=== PATIENT | male | born 1965 | race Hispanic/Latino ===

== ENCOUNTER 2021-04-08 21:30 | Inpatient (IN) | payer OTHER ==
--- OUTSIDE RECORDS SUMMARY | 2021-04-08 21:32 | XMS REPORT | Continuity of Care Document ---
:1965 Author Organization [facility] t Address [address] [place] [address] Care Team Providers Name Role Phone 1, Sleep Lab Bed Attending Clinician Unavailable Only, Test Attending Clinician Unavailable Doctor Unassigned, Name Attending Clinician Unavailable Amy MORE, H Attending Clinician Amado OMRE Attending Clinician Problems This patient has no known problems. Allergies, Adverse Reactions, Alerts This patient has no known allergies or adverse reactions. Medications This patient has no known medications. Procedures This patient has no known procedures. Encounters Start End Encounter Admission Attending Care Care Encounter Source Date/Time Date/Time Type Type Clinicians Facility Department ID 2020-12-31 2020-12-31 Range Feeder 1, [facility] [id number] 12:23:36 14:53:36 Visit Sleep Lab [place] [id number] [facility] [id number] [place] [address] [id number] 2020-12-29 2020-12-29 Laboratory Only, [facility] [id number] 12:23:02 12:38:02 Only Test [place] [id number] [place] [id number] [place] [address] [id number] 2020-12-29 2020-12-29 Orders Doctor SOUSA [id number] 00:00:00 00:00:00 Only Unassigned, [facility] [id number] [place] [facility] [id number] 2020-12-29 2020-12-29 Telephone LARS Reyes [id number] 00:00:00 00:00:00 [place] ALEJO [id number] [facility] [id number] 2020-12-15 2020-12-15 Office SALOMÓN Fischer [id number] 09:36:53 10:20:11 Visit Daniela White [id number] [place] [id number] [facility] [id number] [facility] [address] Results This patient has no known results.
[2021-04-08 23:12] LABS: Absolute Lymphocytes (CBC) 0.6 K/uL (0.7-4.9); Basophils % 0.2 % (0-1.3); Hematocrit 42.2 % (39.6-49.0); Lymphocytes % 5.1 % (15.3-44.8); MPV 9.3 fL (7.6-11.3); RBC Red Blood Cell Count 4.42 M/uL (4.33-5.43)
[2021-04-08 23:29] LABS: ALT/SGPT 40 U/L (12-78); AST/SGOT 24 U/L (15-37); Alkaline Phosphatase 146 U/L (45-117); BUN Blood Urea Nitrogen 16 mg/dL (7-18); Bicarbonate 26 mmol/L (21-32); Bilirubin Direct 0.2 mg/dL (0-0.2); Bilirubin Total 0.8 mg/dL (0.2-1.0); Glucose Level 195 mg/dL (74-106); Lipase 154 U/L (73-393); Protein, Total 8.3 g/dL (6.4-8.2); Sodium Level 142 mmol/L (136-145)
[2021-04-09 01:43] LABS: Blood Morphology Comment NOT SEEN (NOT SEEN); Platelet Estimate ADEQ
--- NOTE | 2021-04-09 02:14 | EDPHYS ---
[facility] Name: Jarrett Sullivan Age: 56 yrs Sex: Male : 1965 Arrival Date: 04/08/2021 Time: 21:51 Bed 11 Private MD: ED Physician Maria L Hector HPI: 04/09 02:20 This 56 yrs old Male presents to ER via EMS with complaints of Abdominal Pain. kb 02:20 The patient presents with abdominal pain in the left upper quadrant, in the left lower kb quadrant. Onset: The symptoms/episode began/occurred today. The symptoms do not radiate. Associated signs and symptoms: none. The symptoms are described as constant. Modifying factors: The symptoms are alleviated by nothing, the symptoms are aggravated by nothing. Severity of pain: At its worst the pain was moderate in the emergency department the pain is unchanged. The patient has not experienced similar symptoms in the past. The patient has not recently seen a physician. Pt reports he felt like someone punched him in the left side of abd when he tried getting out of bed today. Denies any other symptoms. Historical: - Allergies: 04/08 22:28 No Known Allergies; iw - PMHx: 22:28 colon cancer; iw - PSHx: 22:28 Colostomy; iw - Immunization history:: Client reports receiving the 2nd dose of the Covid vaccine. - Social history:: Smoking status: Patient denies any tobacco usage or history of. ROS: 04/09 02:19 Constitutional: Negative for fever, chills, and weight loss. kb Abdomen/GI: Positive for abdominal pain, Negative for nausea, vomiting, and diarrhea. All other systems are negative. Exam: 02:19 Constitutional: This is a well developed, well nourished patient who is awake, alert, kb and in no acute distress. Head/Face: Normocephalic, atraumatic. ENT: Moist Mucous membranes Cardiovascular: Regular rate and rhythm with a normal S1 and S2. No gallops, murmurs, or rubs. No pulse deficits. Respiratory: Respirations even and unlabored. No increased work of breathing, no retractions or nasal flaring. Skin: Warm, dry with normal turgor. Normal color. MS/ Extremity: Pulses equal, no cyanosis. Neurovascular intact. Full, normal range of motion. Neuro: Awake and alert, GCS 15, oriented to person, place, time, and situation. Moves all extremities. Normal gait. Psych: Awake, alert, with orientation to person, place and time. Behavior, mood, and affect are within normal limits. 02:19 Abdomen/GI: Inspection: distension, that is moderate, Bowel sounds: diminished, Palpation: mild abdominal tenderness, in the left upper quadrant and left lower quadrant, colostomy to LLQ. Vital Signs: 04/08 22:29 BP 119 / 51; Pulse 79; Resp 16; Temp 97.9; Pulse Ox 100% on R/A; Weight 104.33 kg; iw Height 5 ft. 5 in. (165.10 cm); Pain 7/10; 22:29 Body Mass Index 38.27 (104.33 kg, 165.10 cm) iw MDM: 04/09 02:06 Patient medically screened. kb 02:12 Data reviewed: vital signs, nurses notes. Data interpreted: Pulse oximetry: on room air kb is 100 %. Interpretation: normal. Counseling: I had a detailed discussion with the patient and/or guardian regarding: the historical points, exam findings, and any diagnostic results supporting the discharge/admit diagnosis, lab results, radiology results, the need for further work-up and treatment in the hospital. Physician consultation: Tutu Logan MD was contacted at 02:12, regarding consult, patient's condition, and will see patient in inpatient room. 02:13 Physician consultation: Ezequiel DUTTON was contacted at 02:13, and will see patient kb in ED. 04/08 23:00 Order name: Basic Metabolic Panel; Complete Time: 00:44 EDPA 04/08 23:00 Order name: Liver (Hepatic) Function; Complete Time: 00:44 EDMS 04/08 23:00 Order name: Lipase; Complete Time: 00:44 EDPA 04/08 23:00 Order name: CBC with Automated Diff; Complete Time: 01:56 EDMS 04/08 23:17 Order name: Manual Differential; Complete Time: 01:56 EDPA 04/09 01:10 Order name: COVID-19 : Document "Date of Symptom Onset" if Symptomatic. kb 04/09 05:16 Order name: SARS-COV-2 RT PCR EDPA 04/09 10:04 Order name: Glucose, Ancillary Testing EDMS 04/09 12:24 Order name: Glucose, Ancillary Testing EDMS 04/09 16:36 Order name: Glucose, Ancillary Testing EDMS 04/08 23:28 Order name: CT Abd/Pelvis - IV Contrast Only sp3 04/09 08:06 Order name: RAD EDMS 04/09 23:03 Order name: Glucose, Ancillary Testing EDMS 04/10 04:07 Order name: CBC with Automated Diff EDMS 04/10 04:52 Order name: Comprehensive Metabolic Panel EDMS 04/10 04:52 Order name: Lipid Profile EDMS 04/10 04:52 Order name: T4 Free EDMS 04/10 04:52 Order name: Magnesium EDMS 04/10 04:52 Order name: Thyroid Stimulating Hormone EDMS 04/10 06:31 Order name: Glucose, Ancillary Testing EDMS 04/10 07:16 Order name: Urinalysis EDMS 04/10 08:07 Order name: Glucose, Ancillary Testing EDMS 04/10 08:41 Order name: RAD EDMS 04/08 22:31 Order name: IV Saline Lock; Complete Time: 04:01 iw 04/08 22:31 Order name: Labs collected and sent; Complete Time: 02:16 iw Administered Medications: 02:42 Drug: Zosyn (piperacillin-tazobactam) 3.375 grams Route: IVPB; Infused Over: 60 mins; bs2 Site: left antecubital; 04:01 Follow up: IV Status: Completed infusion bs2 02:42 Drug: NS 0.9% 1000 ml Route: IV; Rate: 100 ml/hr; Site: left antecubital; bs2 04:01 Follow up: IV Status: Completed infusion bs2 Disposition Summary: 04/09/21 02:13 Hospitalization Ordered Hospitalization Status: Inpatient Admission kb Provider: Jeffrey Wilkes Condition: Stable kb Problem: new kb Symptoms: are unchanged kb Bed/Room Type: Standard kb Location: [facility] ER HOLD(04/09/21 02:26) tl1 Room Assignment: ERHOLD-(04/09/21 02:26) tl1 Diagnosis - Small Bowel Obstruction kb Forms: - Medication Reconciliation Form kb - SBAR form kb Addendum: 04/12/2021 09:10 Co-signature as Attending Physician, Maria L Hector I agree with the assessment and plan s p3 of care. Signatures: Dispatcher [employer] EDAna María Plascencia, AIR SEALING TECHNICIAN-C AIR SEALING TECHNICIAN-Ckb Libby Sanabria, RN RN iw Yolis Reed, RN RN tl1 Maria L Hector sp3 Sun Bedolla, RN RN bs2 Nasima Abdalla, RN RN lh3 Corrections: (The following items were deleted from the chart) 04/08 23:34 23:33 CT-ABD ordered. EDMS EDMS 23:54 23:49 BASIC METABOLIC PANEL+C.LAB.BRZ ordered. EDMS EDMS :54 23:49 CBC+H.LAB.BRZ ordered. EDMS EDMS 23:54 23:49 HEPATIC FUNCTION+C.LAB.BRZ ordered. EDMS EDMS 23:54 23:49 LIPASE+C.LAB.BRZ ordered. EDMS EDMS 04/09 00:24 04/08 23:34 Abdomen ordered. EDMS EDMS 04/09 02:26 02:13 Telemetry/MedSurg (Inpatient) kb tl1 02: 02:13 kb tl1
--- NOTE | 2021-04-09 02:14 | ER ---
Nurse's Notes [facility] Name: Jarrett Sullivan Age: 56 yrs Sex: Male : 1965 Arrival Date: 04/08/2021 Time: 21:51 Bed 11 Private MD: Diagnosis: Small Bowel Obstruction Presentation: 04/08 22:28 Chief complaint: Patient states: has been having left abd pain today, feels like iw someone kicked me , denies n/v/d , pt has hx of colon cancer with colostomy bag. Coronavirus screen: At this time, the client does not indicate any symptoms associated with coronavirus-19. Ebola Screen: Patient negative for fever greater than or equal to 101.5 degrees Fahrenheit, and additional compatible Ebola Virus Disease symptoms Patient denies exposure to infectious person. Patient denies travel to an Ebola-affected area in the 21 days before illness onset. No symptoms or risks identified at this time. Initial Sepsis Screen: Does the patient meet any 2 criteria? No. Patient's initial sepsis screen is negative. Does the patient have a suspected source of infection? No. Patient's initial sepsis screen is negative. Risk Assessment: Do you want to hurt yourself or someone else? Patient reports no desire to harm self or others. Onset of symptoms was April 08, 2021. 22:28 Acuity: JAYA 3 iw 22:28 Method Of Arrival: EMS: [facility] iw Historical: - Allergies: 22:28 No Known Allergies; iw - PMHx: 22:28 colon cancer; iw - PSHx: 22:28 Colostomy; iw - Immunization history:: Client reports receiving the 2nd dose of the Covid vaccine. - Social history:: Smoking status: Patient denies any tobacco usage or history of. Vital Signs: 22:29 BP 119 / 51; Pulse 79; Resp 16; Temp 97.9; Pulse Ox 100% on R/A; Weight 104.33 kg; iw Height 5 ft. 5 in. (165.10 cm); Pain 7/10; 22:29 Body Mass Index 38.27 (104.33 kg, 165.10 cm) iw ED Course: 21:51 Patient arrived in ED. cf2 22:28 Triage completed. iw 22:30 Arm band placed on. iw 22:30 Maintain EMS IV. Dressing intact. Good blood return noted. Gauge \\T\\ site: 20 LFA. iw 04/09 00:22 CT Abd/Pelvis - IV Contrast Only In Process Unspecified. EDMS 00:44 Ana María [facility] F[facility]-C [facility] kb 00:44 Maria L Hector is Attending Physician. kb 02:13 Jeffrey Wilkes MD is Hospitalizing Provider. kb 02:15 Sun Bedolla, KENYATTA is Primary Nurse. bs2 04:01 COVID-19 : Document "Date of Symptom Onset" if Symptomatic. Sent. bs2 11:13 Assisted with urinal. assisted with colostomy emptying. mb4 Administered Medications: 02:42 Drug: Zosyn (piperacillin-tazobactam) 3.375 grams Route: IVPB; Infused Over: 60 mins; bs2 Site: left antecubital; 04:01 Follow up: IV Status: Completed infusion bs2 02:42 Drug: NS 0.9% 1000 ml Route: IV; Rate: 100 ml/hr; Site: left antecubital; bs2 04:01 Follow up: IV Status: Completed infusion bs2 Outcome: 02:13 Decision to Hospitalize by Provider. kb 04/10 12:06 Patient left the ED. Signatures: Dispatcher [employer] EDMS Ana María Rico FNP-C DIRECTOR APPAREL-CkLibby Nair RN RN Angelina Sebastian RN RN Sariah Sebastian mb4 Milena Zacarias cf2 Sun Bedolla, KENYATTA RN bs2 Corrections: (The following items were deleted from the chart) 04/08 22:30 22:28 Chief complaint: Patient states: has been having left abd pain today, feels like iw someone kicked me , denies n/v/d iw 22:30 22:28 Method Of Arrival: Ambulatory [facility]
--- NOTE | 2021-04-09 02:25 | P.HP ---
Certification for Inpatient Patient admitted to: Inpatient With expected LOS: >2 Midnights Patient will require the following post-hospital care: None Practitioner: I am a practitioner with admitting privileges, knowledge of patient current condition, hospital course, and medical plan of care. Services: Services provided to patient in accordance with Admission requirements found in Title 42 Section 412.3 of the Code of Federal Regulations <Ezequiel Hernández - Last Filed: 04/09/21 02:20> Patient History Date of Service: 04/09/21 Reason for admission: SBO History of Present Illness: 56 YO male with history of rectal adenocarcinoma status post colostomy DM 2, hypertension presents emergency department for abdominal pain. Patient reports increasing abdominal, left sided pain over the course last 2 days, patient previous small bowel obstructions. Patient valuated emergency department labs significant for white blood cell count 12.1 with left shift chloride 111 glucose 195 patient obese abdomen mildly distended ostomy appliance intact. CT abdomen pelvis demonstrates small bowel obstruction with a large parastomal hernia, ED provider discussed case with general surgery recommends admission, n.p.o., IVF, antibiotics for further management. - Past Medical/Surgical History -: Rectal adenocarcinoma -: Diabetes mellitus type 2 -: Hypertension -: Obesity -: Hernia repair -: Rectal surgery -: Ostomy Psychosocial/ Personal History: , lives with - Family History Sister -: Cancer - Social History Smoking Status: Never smoker Alcohol use: No CD- Drugs: No Caffeine use: Yes Place of Residence: Home <Ezequiel Hernández - Last Filed: 04/09/21 02:20> Date of Service: 04/09/21 <Jeffrey Wilkes - Last Filed: 04/09/21 16:03> Review of Systems 10-point ROS is otherwise unremarkable Gastrointestinal: Abdominal Pain, Distention <Ezequiel Hernández - Last Filed: 04/09/21 02:20> Physical Examination - Physical Exam General: Alert, In no apparent distress, Oriented x3 HEENT: Atraumatic, PERRLA, Mucous membr. moist/pink, EOMI, Sclerae nonicteric Neck: Supple, 2+ carotid pulse no bruit, No LAD, Without JVD or thyroid abnormality Respiratory: Clear to auscultation bilaterally, Normal air movement Cardiovascular: Regular rate/rhythm, Normal S1 S2 Gastrointestinal: Soft and benign, No tenderness, Distended Musculoskeletal: No tenderness Integumentary: No rashes Neurological: Normal speech, Normal strength at 5/5 x4 extr, Normal tone, Normal affect - Studies Laboratory Data (last 24 hrs) 04/08/21 22:40: WBC 12.10 H, Hgb 13.9, Hct 42.2, Plt Count 230 04/08/21 22:40: Sodium 142, Potassium 4.0, BUN 16, Creatinine 0.81, Glucose 195 H, Total Bilirubin 0.8, AST 24, ALT 40, Alkaline Phosphatase 146 H, Lipase 154 04/08/21 22:31: WBC Cancelled, Hgb Cancelled, Hct Cancelled, Plt Count Cancelled 04/08/21 22:31: Sodium Cancelled, Potassium Cancelled, BUN Cancelled, Creatinine Cancelled, Glucose Cancelled, Total Bilirubin Cancelled, AST Cancelled, ALT Cancelled, Alkaline Phosphatase Cancelled, Lipase Cancelled <Ezequiel Hernández - Last Filed: 04/09/21 02:20> - Studies Laboratory Data (last 24 hrs) 04/08/21 22:40: WBC 12.10 H, Hgb 13.9, Hct 42.2, Plt Count 230 04/08/21 22:40: Sodium 142, Potassium 4.0, BUN 16, Creatinine 0.81, Glucose 195 H, Total Bilirubin 0.8, AST 24, ALT 40, Alkaline Phosphatase 146 H, Lipase 154 04/08/21 22:31: WBC Cancelled, Hgb Cancelled, Hct Cancelled, Plt Count Cancelled 04/08/21 22:31: Sodium Cancelled, Potassium Cancelled, BUN Cancelled, Creatinine Cancelled, Glucose Cancelled, Total Bilirubin Cancelled, AST Cancelled, ALT Cancelled, Alkaline Phosphatase Cancelled, Lipase Cancelled <Jeffrey Wilkes - Last Filed: 04/09/21 16:03> Assessment and Plan - Plan Assessment: Abdominal pain secondary to small bowel obstruction within large parastomal hernia with history of rectal adenocarcinoma Diabetes most type II with hyperglycemia Hypertension Obesity Plan: Abdominal pain secondary to small bowel obstruction within large parastomal hernia with history of rectal adenocarcinoma: N.p.o., IVF, general surgery consult, as needed pain medications and antiemetics. NG tube for worsening ab dominal distention, increasing pain or vomiting. Appreciate further input from general surgery. Diabetes most type II with hyperglycemia: Every 6 hours Accu-Chek while patient is n.p.o. sliding-scale cell therapy. Hypertension: Hold blood pressure medication at this time, restart when appropriate. Obesity: Address lifestyle changes. DVT PPX: SCDs Code status: Full Discharge Plan: Home Plan to discharge in: Greater than 2 days - Advance Directives Does patient have a Living Will: No Does patient have a Durable POA for Healthcare: No - Code Status/Comfort Care Code Status Assessed: Yes (Full code) Time Spent Managing Pts Care (In Minutes): 55 <Ezequiel Hernández - Last Filed: 04/09/21 02:20> - Plan Patient seen and evaluated this morning on rounds. Patient reported improvement of his abdominal pain. Persistence of his abdominal distention. Denied nausea/vomiting Reports minimal to no gas or stool output into his ostomy bag Continue n.p.o., IV fluids General surgery consulted <Jeffrey Wilkes - Last Filed: 04/09/21 16:03>
[2021-04-09] MEDS ORDERED: PIPER/TAZO/NS 3.375gm 3.375 GM/100 ML BAG ONE ×3 (02:47→10:45)
[2021-04-09] MEDS ORDERED: NA CHLORIDE 0.9% 1,000 ML ONE ×3 (02:47→16:25)
[2021-04-09] MEDS: MORPHINE 2 MG/ML SYR IV PRN ×3 (03:00→16:19)
[2021-04-09] MEDS: ONDANSETRON 4 MG/2 ML VIAL IV PRN ×3 (03:00→16:20)
[2021-04-09] MEDS ORDERED: ONDANSETRON 4 MG/2 ML VIAL ONE ×3 (03:18→16:18)
[2021-04-09] MEDS ORDERED: MORPHINE 2 MG/ML SYR ONE ×3 (03:18→16:18)
[2021-04-09] MEDS: NA CHLORIDE 0.9% 1,000 ML IV SCH ×3 (05:41→23:00)
[2021-04-09] MEDS: INSULIN -REGULAR HUMAN 50 UNIT/0.5 ML ML SQ SCH ×4 (07:30→21:00)
--- NOTE | 2021-04-09 08:06 | RAD REPORT ---
EXAM DESCRIPTION: RAD - Abdomen 1 View (KUB) - 04/09/2021 7:47 am CLINICAL HISTORY: Abdomen pain. FINDINGS: No significant change in mildly dilated jejunum and proximal/mid ileum. This is compatible with a mechanical obstruction. Contrast is present within the bladder from recent CT
[2021-04-09] MEDS: PIPER/TAZO/NS 3.375gm 3.375 GM/100 ML BAG IVPB SCH ×2 (09:00→17:00)
[2021-04-09 10:19] VITALS: BMI 39.4
--- NOTE | 2021-04-09 11:48 | RAD REPORT ---
EXAM DESCRIPTION: CT - Abdomen Pelvis W Contrast - 04/09/2021 6:23 am COMPARISON: None. CLINICAL HISTORY: [facility] MAIN ABD PAIN TECHNIQUE: CT of the abdomen and pelvis was acquired with IV contrast material. Coronal and sagitt al reconstructions were obtained. Automated exposure control was utilized on this examination as a dose lowering technique. FINDINGS: Lung bases: Clear. Liver: Normal. Gallbladder and biliary: Normal gallbladder. Unremarkable biliary tree. Pancreas: Normal. Spleen: Normal. Adrenal glands: Normal adrenal glands. Kidneys: Normal kidneys Stomach and Small Bowel: Normal stomach. Multiple dilated loops of small bowel are present. There is a transition point within the large bowel containing parastomal hernia. Urinary bladder: Normal. Prostate/Male Urogenital: Normal. Colon and Appendix: Distal colectomy with left lower quadrant colostomy. No evidence of appendicitis. Retroperitoneum and lymph nodes: Normal. Vascular: Moderate atherosclerosis. Peritoneal cavity: No ascites or free air. Musculoskeletal and soft tissues: Large bowel containing parastomal hernia is present with the sac me asuring 20.4 cm and the peritoneal defect measuring 5.7 cm. Small periumbilical hernia. Lumbar spondy losis. No aggressive bone lesions. No compression fracture. IMPRESSION: Small bowel obstruction within the large peristomal hernia. Electronically signed by: Pedro Farnsworth MD 04/09/2021 12:51 AM CDT Due to temporary technical issues with the PACS/Fluency reporting system, reports are being signed by the in house radiologists without review as a courtesy to insure prompt reporting. The interpreting radiologist is fully responsible for the content of the report.
[2021-04-10] MEDS ORDERED: PIPER/TAZO/NS 3.375gm 3.375 GM/100 ML BAG ONE ×2 (01:35→09:35)
[2021-04-10] MEDS: PIPER/TAZO/NS 3.375gm 3.375 GM/100 ML BAG IVPB SCH ×2 (01:43→09:00)
[2021-04-10 04:06] LABS: Absolute Lymphocytes (CBC) 0.5 K/uL (0.7-4.9); Basophils % 0.4 % (0-1.3); Hematocrit 40.3 % (39.6-49.0); Lymphocytes % 5.9 % (15.3-44.8); MPV 9.1 fL (7.6-11.3); RBC Red Blood Cell Count 4.19 M/uL (4.33-5.43)
[2021-04-10 04:50] LABS: ALT/SGPT 30 U/L (12-78); Albumin 3.4 g/dL (3.4-5.0); Alkaline Phosphatase 116 U/L (45-117); BUN Blood Urea Nitrogen 13 mg/dL (7-18); Bicarbonate 24 mmol/L (21-32); Bilirubin Total 1.1 mg/dL (0.2-1.0); Glucose Level 120 mg/dL (74-106); HDL Cholesterol 49 mg/dL (40-60); LDL Cholesterol, Calculated 47 (<130); Protein, Total 7.2 g/dL (6.4-8.2); Sodium Level 141 mmol/L (136-145); Thyroid Stimulating Hormone 0.106 uIU/mL (0.360-3.740)
[2021-04-10 04:52] LABS: AST/SGOT 26 U/L (15-37); Potassium 3.8 mmol/L (3.5-5.1)
[2021-04-10] MEDS ORDERED: KETOROLAC 30 MG/ML INJ IV ONE (05:06)
[2021-04-10] MEDS ORDERED: KETOROLAC 30 MG/ML INJ ONE (05:38)
[2021-04-10 07:15] LABS: Urine Appearance CLEAR (Clear); Urine Bilirubin NEGATIVE (Negative); Urine Blood NEGATIVE (Negative); Urine Color YELLOW (Yellow); Urine Glucose 3+ (Negative); Urine Microscopic Reflex NO UMIC; Urine Protein NEGATIVE (Negative); Urine Specific Gravity >=1.030 (1.005-1.030); Urine Urobilinogen 0.2 mg/dL (0.2-1.0); Urine pH 5.5 (5.0-7.0)
[2021-04-10] MEDS: INSULIN -REGULAR HUMAN 50 UNIT/0.5 ML ML SQ SCH (07:30)
[2021-04-10 08:10] VITALS: BP 121/59; TEMP 98.8
--- NOTE | 2021-04-10 08:41 | RAD REPORT ---
EXAM DESCRIPTION: RAD - Abdomen 1 View (KUB) - 04/10/2021 6:54 am CLINICAL HISTORY: f/u SBO COMPARISON: Abdomen 1 View (KUB) dated 04/09/2021; Abdomen Pelvis W Contrast dated 04/09/2021 FINDINGS: Multiple dilated small bowel loops are again noted. Pattern is not substantially different from the CT study. Fecalized small bowel content again noted in the left mid abdomen loops. No free air or pneumatosis seen. No suspicious calcifications. No significant bony findings IMPRESSION: Stable small bowel dilatation pattern. No clear change from the April 09 CT study.
[2021-04-10] MEDS ORDERED: NA CHLORIDE 0.9% 1,000 ML ONE (08:50)
[2021-04-10] MEDS: NA CHLORIDE 0.9% 1,000 ML IV SCH (08:55)
[2021-04-10] MEDS ORDERED: POTASSIUM CL SA 10 MEQ TAB PO ONE ×2 (09:00→09:35)
--- NOTE | 2021-04-10 10:34 | P.DS ---
Admission Date: 04/09/21 Discharge Date: 04/10/21 Discharge Condition: FAIR Reason for Admission: SBO Consultations: General surgeryDrBrianne Logan Procedures: CT Abd/pelvis (04/08): FINDINGS: Lung bases: Clear. Liver: Normal. Gallbladder and biliary: Normal gallbladder. Unremarkable biliary tree. Pancreas: Normal. Spleen: Normal. Adrenal glands: Normal adrenal glands. Kidneys: Normal kidneys Stomach and Small Bowel: Normal stomach. Multiple dilated loops of small bowel are present. There is a transition point within the large bowel containing parastomal hernia. Urinary bladder: Normal. Prostate/Male Urogenital: Normal. Colon and Appendix: Distal colectomy with left lower quadrant colostomy. No evidence of appendicitis. Retroperitoneum and lymph nodes: Normal. Vascular: Moderate atherosclerosis. Peritoneal cavity: No ascites or free air. Musculoskeletal and soft tissues: Large bowel containing parastomal hernia is present with the sac measuring 20.4 cm and the peritoneal defect measuring 5.7 cm. Small periumbilical hernia. Lumbar spondylosis. No aggressive bone lesions. No compression fracture. IMPRESSION: Small bowel obstruction within the large peristomal hernia. KUB X-ray (04/09): FINDINGS: No significant change in mildly dilated jejunum and proximal/mid ileum. This is compatible with a mechanical obstruction. KUB X-ray (04/10): FINDINGS: Multiple dilated small bowel loops are again noted. Pattern is not substantially different from the CT study. Fecalized small bowel content again noted in the left mid abdomen loops. No free air or pneumatosis seen. No suspicious calcifications. No significant bony findings IMPRESSION: Stable small bowel dilatation pattern. No clear change from the April 09 CT study. Problem List small bowel obstruction within large parastomal hernia with history of rectal adenocarcinoma h/o rectal adenocarcinoma s/p resection, colostomy, chemo Diabetes most type II with hyperglycemia Hypertension Obesity Brief History of Present Illness: 56 YO male with history of rectal adenocarcinoma status post colostomy DM 2, hypertension presents emergency department for abdominal pain. Patient reports increasing abdominal, left sided pain over the course last 2 days, patient previous small bowel obstructions. Patient valuated emergency department labs significant for white blood cell count 12.1 with left shift chloride 111 glucose 195 patient obese abdomen mildly distended ostomy appliance intact. CT abdomen pelvis demonstrates small bowel obstruction with a large parastomal hernia, ED provider discussed case with general surgery recommends admission, n.p.o., IVF, Zosyn for further management. Hospital Course: Patient was met IV Zosyn. He had some improvement in his abdominal pain, but continued with some slight intermittent discomfort. He did not have any nausea or vomiting since admission. Continued with abdominal distention, KUB unchanged. General surgery was consulted and evaluated the patient. Recommended continued medical management at this time. Due to unavailability of hospital beds, transfer to [facility] was initiated. Patient was accepted for transfer. Vital Signs/Physical Exam: Temp Pulse Resp BP Pulse Ox 98.8 F 93 H 16 121/59 L 95 04/10/21 08:00 04/10/21 08:00 04/10/21 08:00 04/10/21 08:00 04/10/21 08:00 General: Alert, In no apparent distress, Oriented x3 HEENT: Other (Dry mucous membranes), Sclerae nonicteric Respiratory: Clear to auscultation bilaterally, Normal air movement Cardiovascular: No edema, Regular rate/rhythm, Normal S1 S2 Gastrointestinal: Other (Ostomy bag without gas, minimal stool), Distended, Tenderness (Mild around his stoma) Musculoskeletal: No erythema, No tenderness Integumentary: No rashes, No significant lesion Neurological: Normal speech, Normal affect Laboratory Data at Discharge: WBC 7.70 K/uL (4.3-10.9) D 04/10/21 03:30 Hgb 13.4 g/dL (13.6-17.9) L 04/10/21 03:30 Hct 40.3 % (39.6-49.0) 04/10/21 03:30 Plt Count 199 K/uL (152-406) 04/10/21 03:30 Sodium 141 mmol/L (136-145) 04/10/21 03:30 Potassium 3.8 mmol/L (3.5-5.1) 04/10/21 03:30 BUN 13 mg/dL (7-18) 04/10/21 03:30 Creatinine 0.68 mg/dL (0.55-1.3) 04/10/21 03:30 Glucose 120 mg/dL (74-106) H 04/10/21 03:30 Magnesium 2.0 mg/dL (1.8-2.4) 04/10/21 03:30 Total Bilirubin 1.1 mg/dL (0.2-1.0) H 04/10/21 03:30 AST 26 U/L (15-37) 04/10/21 03:30 ALT 30 U/L (12-78) 04/10/21 03:30 Alkaline Phosphatase 116 U/L (45-117) 04/10/21 03:30 Triglycerides 90 mg/dL (<150) 04/10/21 03:30 Cholesterol 114 mg/dL (<200) 04/10/21 03:30 HDL Cholesterol 49 mg/dL (40-60) 04/10/21 03:30 Cholesterol/HDL Ratio 2.33 04/10/21 03:30 Lipase 154 U/L (73-393) 04/08/21 22:40 Followup: NONE,NONE [Primary Care Provider] - Time spent managing pt's care (in minutes): 45
[2021-04-10] MEDS: MORPHINE 2 MG/ML SYR IV PRN (10:37)
[2021-04-10] MEDS: ONDANSETRON 4 MG/2 ML VIAL IV PRN (10:37)
[2021-04-10] MEDS ORDERED: ONDANSETRON 4 MG/2 ML VIAL ONE (11:00)
[2021-04-10] MEDS ORDERED: MORPHINE 2 MG/ML SYR ONE (11:00)
[2021-04-10 12:43] VITALS: O2SAT 100
== END 2021-04-10 11:43 | disposition short-term general hospital (02) | DRG 395 ==
LOC: ER 21:30 → ERHOLD 04-09 02:14
PROVIDERS: ADMIT Hospitalist; ATTEND Hospitalist
DX: K43.3 Parastomal hernia with obstruction, without gangrene (principal); E11.65 Type 2 diabetes mellitus with hyperglycemia; I10 Essential (primary) hypertension; Z93.3 Colostomy status; Z85.048 Personal history of other malignant neoplasm of rectum, rectosigmoid junction, and anus; Z20.822 Contact with and (suspected) exposure to COVID-19
CPT/HCPCS: 36415; 74018; 74177; 80048; 80053; 80061; 80076; 81003; 82947; 83690; 83735; 84439; 84443; 85025; 96365; 99284; J2270; J2405; J2543; J7030; Q9967; U0003